=== PATIENT | male | born 1985 | race Caucasian/White ===

== ENCOUNTER 2021-06-09 10:46 | Outpatient (CLI) | payer MEDICAID, SELFPAY ==
--- NOTE | 2021-06-09 10:55 | XR_ITS ---
WS: [id number] XR tibia fibula RT 2V [id number] REASON FOR EXAM: M79.671 - Pain in right foot FINDINGS: The right tibia and fibula are intact. No fracture identified. There are several calcifications in the soft tissues that have the appearance of phleboliths. Presuma nelia this is due to chronic venous stasis/varices. XR/XR tibia fibula RT 2V [id number] IMPRESSION: No acute abnormality of the right tibia or fibula.
--- NOTE | 2021-06-09 10:55 | XR_ITS ---
WS: [id number] XR ankle RT min 3V* [id number] REASON FOR EXAM: M79.671 - Pain in right foot FINDINGS: The ankle mortise is preserved. There are degenerative changes in the distalmost medial and lateral malleolus and adjacent talus comp atible with previous lateral and medial collateral ligamentous complex injury. No fracture identified. No soft tissue abnormality. 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
== END 2021-06-09 10:47 | disposition home or self-care (01) ==
LOC: RAD 10:51
PROVIDERS: PCP Family Medicine; Visit Provider Family Medicine
DX: M79.671 Pain in right foot (principal); M79.604 Pain in right leg; G89.29 Other chronic pain
CPT/HCPCS: 73590; 73610